=== PATIENT | female | born 1985 | race Caucasian/White ===

== ENCOUNTER 2018-07-02 11:28 | Emergency (ER) | payer SELFPAY, MEDICAID ==
[2018-07-02] MEDS: HYDROCODONE/APAP (5/325) TAB PO (12:46)
== END 2018-07-02 14:08 | disposition home or self-care (01) ==
LOC: FTE 11:28
DX: S59.911A Unspecified injury of right forearm, initial encounter (principal); S69.91XA Unspecified injury of right wrist, hand and finger(s), initial encounter; S16.1XXA Strain of muscle, fascia and tendon at neck level, initial encounter; V49.49XA Driver injured in collision with other motor vehicles in traffic accident, initial encounter
CPT/HCPCS: 73090; 73090-RT; 73130-RT; 99283-25